=== PATIENT | female | born 1955 | race Caucasian/White ===

== ENCOUNTER 2017-01-13 11:41 | Day surgery (SDC) | payer MEDICAID ==
[2017-01-13] MEDS ORDERED: NATE60TA PO (12:15)
[2017-01-13] MEDS ORDERED: AMLO10TA2 PO (12:15)
[2017-01-13] MEDS ORDERED: LOSA50TA PO (12:15)
[2017-01-13] MEDS ORDERED: CYCL1TAB29 PO (12:15)
[2017-01-13] MEDS ORDERED: POLYDRO EACH EYE (12:15)
[2017-01-13] MEDS ORDERED: CHOL4POW3 PO (12:15)
[2017-01-13] MEDS ORDERED: ATOR40TA16 PO (12:15)
[2017-01-13] MEDS ORDERED: LORA10TA PO (12:15)
[2017-01-13] MEDS ORDERED: SPIR50TA PO (12:15)
[2017-01-13] MEDS ORDERED: FAMO20TA2 PO (12:15)
[2017-01-13] MEDS ORDERED: EPIN1INJ17 IM (12:15)
[2017-01-13] MEDS ORDERED: ADVA250A INH (12:15)
[2017-01-13] MEDS ORDERED: VENTAER INH (12:15)
[2017-01-13] MEDS ORDERED: FOLI5CAP PO (12:15)
[2017-01-13] MEDS ORDERED: CYAN1000P IM (12:15)
[2017-01-13] MEDS ORDERED: CLON0.1T PO (12:15)
[2017-01-13] MEDS ORDERED: NITR1SUB3 SL (12:15)
[2017-01-13] MEDS ORDERED: ceFAZolin 2 GM PREMIX 50 ML IV SCH (13:15)
[2017-01-13] MEDS ORDERED: CHLORHEXIDINE GLUCONATE 2 % 1 PACK (2 CLOTHS) TOPICAL SCH (13:15)
[2017-01-13] MEDS ORDERED: VANCOMYCIN 1000 MG/NS 250 ML IV SCH ×2 (13:15)
[2017-01-13] MEDS ORDERED: MIDAZOLAM HCL 2 MG/2 ML VIAL ONE (13:16)
[2017-01-13] MEDS ORDERED: MUPIROCIN 2% OINT 1 APPLIC/GM SYR NASAL SCH (14:00)
--- NOTE | 2017-01-13 14:21 | MR ---
cc: YING HAWKINS DATE: 01/13/2017 INDICATIONS FOR PROCEDURE: Cardiac arrhythmia, dizziness, palpitations. PROCEDURE PREFORMED: 1. Placement of Medtronic reveal Linq MRI compatible loop monitor. 2. Moderate sedation. EXIT SITE: Left subclavicular area. EQUIPMENT USED: Medtronic reveal Linq model LNQ11 MRI compatible loop monitor, serial number [id number]. MEDICATIONS: IV fentanyl PROCEDURE: After the patient was prepped and draped in the usual sterile manner, local anesthesia was administered. Medtronic Reveal Linq was placed in the left anterior chest without difficulty. R-wave is 0.23 millivolts. DIAGNOSIS: Successful placement of Medtronic Reveal LINQ MRI compatible loop monitor. DISPOSITION: Ms. Charlton will continue her current medical problem. She will be discharged home today. I will see her back for followup in our office after discharge. We will initiate lobsterman monitoring of her device. MD OSEI Greer/patel /1:43 PM /2:16 PM JAMAAL
== END 2017-01-13 14:25 | disposition home or self-care (01) ==
LOC: HDOC 11:41 → HDIC 11:42 → HDOC 14:25
PROVIDERS: ATTEND Internal Medicine Interventional Cardiology
DX: I49.9 Cardiac arrhythmia, unspecified (principal); R42 Dizziness and giddiness; R00.2 Palpitations
CPT/HCPCS: 33282; C1764; J0690; J2250; J3010

== ENCOUNTER 2018-05-28 13:11 | Observation (INO) ==
[2018-05-28 13:21] VITALS: TEMP 98.1
--- NOTE | 2018-05-28 13:37 | ED ---
HPI General Chief complaint: Headache Stated complaint: Headache Time Seen by Provider: 05/28/18 13:30 History of Present Illness HPI narrative: This is a 63-year-old female with history of chronic kidney disease, diabetes, COPD, hypertension, presents via EMS for evaluation of headache and facial droop. She reports that one week ago she developed right- sided facial droop primarily noticeable at the lips. She does not recall any forehead or eyelid droop. She reports that there were paresthesias in her right leg and right arm as well. Symptoms lasted for approximately 3-4 days and then resolved. She reports that one week ago she also developed left-sided occipital headaches which are sharp and intermittent, typically lasting for 4-5 minutes at a time. Those have persisted. She went to see her primary care physician today and was sent here via EMS. Currently her only complaint is the intermittent occipital headaches as well as high blood pressure. She reports that today her blood pressure was noted to be 212 systolic. She reports that she has been compliant with her medications. Denies dizziness, lightheadedness , chest pain, shortness of breath, weakness in the extremities, nausea or vomiting. No other complaints. Related Data Home Medications Medication Instructions Recorded Confirmed albuterol sulfate [Ventolin HFA] 2 puff INHALATION Q6H PRN 04/09/18 05/28/18 atorvastatin 40 mg PO DAILY 04/09/18 05/28/18 chlorthalidone 100 mg PO DAILY 04/09/18 05/28/18 cholestyramine (with sugar) 4 g PO BID 04/09/18 05/28/18 clonidine HCl 0.1 tab PO DAILY 04/09/18 05/28/18 cyanocobalamin (vitamin B-12) 1,000 mcg IM QMONTH 04/09/18 05/28/18 cyclobenzaprine [Amrix] 10 mg PO BID 04/09/18 05/28/18 diltiazem HCl 120 mg PO BID 04/09/18 05/28/18 epinephrine 0.3 mg IM Q15M PRN 04/09/18 05/28/18 famotidine 20 mg PO DAILY 04/09/18 05/28/18 fluticasone-salmeterol [Advair 1 inh INHALATION Q12H 04/09/18 05/28/18 Diskus] folic acid 1 mg PO DAILY 04/09/18 05/28/18 glipizide 2.5 mg PO DAILY 04/09/18 05/28/18 loratadine 10 mg PO DAILY 04/09/18 05/28/18 losartan 50 mg PO DAILY 04/09/18 05/28/18 metoprolol tartrate 100 mg PO BID 04/09/18 05/28/18 nateglinide 60 mg PO TID 04/09/18 05/28/18 nitroglycerin [Nitrostat] 0.4 mg SUBLINGUAL Q5-15M PRN 04/09/18 05/28/18 peg 400-propylene glycol 1 drp OPHTHALMIC (EYE) DAILY 04/09/18 05/28/18 [Lubricant Eye (PG-PEG 400)] promethazine 12.5 mg PO Q6H PRN 04/09/18 05/28/18 torsemide 10 mg PO DAILY 04/09/18 05/28/18 Allergies Allergy/AdvReac Type Severity Reaction Status Date / Time acetaminophen Allergy Severe Unverified 04/07/17 13:21 adhesive Allergy Severe Unverified 04/07/17 13:21 aspirin Allergy Severe Unverified 04/07/17 13:21 banana Allergy Severe Unverified 04/07/17 13:21 bumetanide Allergy Severe Unverified 04/07/17 13:21 codeine Allergy Severe Unverified 04/07/17 13:21 doxycycline Allergy Severe Unverified 04/07/17 13:21 furosemide Allergy Severe Unverified 04/07/17 13:21 hydrochlorothiazide Allergy Severe Unverified 04/07/17 13:21 iodine Allergy Severe Unverified 04/07/17 13:21 meperidine Allergy Severe Unverified 04/07/17 13:21 octreotide Allergy Severe Unverified 04/07/17 13:21 potassium iodide Allergy Severe Unverified 04/07/17 13:21 povidone-iodine Allergy Severe Unverified 04/07/17 13:21 propoxyphene Allergy Severe Unverified 04/07/17 13:21 sodium iodide Allergy Severe Unverified 04/07/17 13:21 sodium iodide Allergy Severe Unverified 04/07/17 13:21 triamterene Allergy Severe Unverified 04/07/17 13:21 ALL NON-CITRUS FRUITS Allergy Severe Uncoded 01/13/17 12:05 Review of Systems ROS: all other systems reviewed are negative [facility] Medical History Medical History CAD (coronary artery disease) (Acute) Diabetes (Acute) Hepatitis (Acute) Hypertension (Acute) Hypothyroid (Acute) IBS (irritable bowel syndrome) (Acute) Lymph node disorder (Acute) Social History Social History Substance History: No History of Abuse Second Hand Smoke Exposure: No Smoking Status: Former smoker Tobacco Type: Cigarettes How Often Do You Have a Drink Containing Alcohol: Never Recent Travel in [facility] within the Last 8 Weeks: No Recent Out of Country Travel within the Last 8 Weeks: No Immunization History Tetanus Immunization: Unsure Exam Narrative Exam Narrative: GENERAL: Well-developed well-nourished female no acute distress SKIN: Warm and dry. HEAD: Atraumatic. Normocephalic. EYES: Pupils equal and round. No scleral icterus. No injection or drainage. ENT: No nasal bleeding or discharge. Mucous membranes pink and moist. NECK: Trachea midline. No JVD. CARDIOVASCULAR: Regular rate and rhythm. No murmur appreciated. RESPIRATORY: No accessory muscle use. Clear to auscultation. Breath sounds equal bilaterally. GASTROINTESTINAL: Abdomen soft, non-tender, nondistended. Hepatic and splenic margins not palpable. MUSCULOSKELETAL: No obvious deformities. No clubbing. No cyanosis. No edema. NEUROLOGICAL: Awake and alert. No obvious cranial nerve deficits. Motor grossly within normal limits. Normal speech. Normal occupational therapy department chair strength bilaterally. No upper extremity drift. No lower extremity drift. Normal finger to nose. Normal sensation to light touch in the face, upper and lower extremities. Course Initial Documented Vital Signs Temperature 98.1 F 05/28/18 13:16 Pulse Rate 106 H 05/28/18 13:16 Respiratory Rate 17 05/28/18 13:16 Blood Pressure 176/86 H 05/28/18 13:16 Pulse Oximetry 96 05/28/18 13:16 Last Documented Vital Signs Temperature 98.1 F 05/28/18 13:16 Pulse Rate 92 H 05/28/18 14:46 Respiratory Rate 17 05/28/18 14:46 Blood Pressure 186/79 H 05/28/18 14:46 Pulse Oximetry 99 05/28/18 14:46 Medical Decision Making ADAM Attestation ADAM supervised visit: Yes Attestation: I, Dr. Euceda, have reviewed the advance practice practitioner's documentation and am in agreement, met with the patient face to face, made the diagnosis, and the medical decision making was done by me. *My assessment and Findings: Patient is a 63-year-old female who comes in complaining of a stabbing pain to the left side of her head. She does report neuro symptoms earlier in the week, but these have resolved. Exam shows no neurologic abnormalities. MDM Narrative Medical decision making narrative: The patient was placed on ECG monitoring pulse oximetry. Lab work, CT brain ordered. Lab work and imaging studies reviewed. At this point in time the plan will be to admit her for TIA. Discussed with Dr. Jerez who is agreeable, would like a neurology consult to be placed. Aspirin is not being administered as she reports that she is allergic to aspirin. Medical Screen Exam Complete: Yes Emergency Medical Condition: Yes Differential Diagnosis Differential Diagnosis: TIA, CVA, hypertensive emergency, hypertensive urgency, subarachnoid hemorrhage, mass, Manning's palsy Lab Data Result diagrams: 05/28/18 13:35 05/28/18 13:35 Lab Results 05/28/18 05/28/18 05/28/18 Range/Units 13:35 13:35 13:35 WBC 10.4 (4.0-11.0) th/mm3 RBC 5.00 (4.00-5.30) mil/mm3 Hgb 14.3 (11.6-15.3) gm/dL Hct 43.8 (35.0-46.0) % MCV 87.6 (80.0-100.0) fL MCH 28.5 (27.0-34.0) pg MCHC 32.6 (32.0-36.0) % RDW 16.6 (11.6-17.2) % Plt Count 278 (150-450) th/mm3 MPV 8.5 (7.0-11.0) fL Neut % (Auto) 57.7 (16.0-70.0) % Lymph % (Auto) 29.0 (9.0-44.0) % Iroquois % (Auto) 10.0 H (0.0-8.0) % Eos % (Auto) 2.3 (0.0-4.0) % Baso % (Auto) 1.0 (0.0-2.0) % Neut # (Auto) 6.0 (1.8-7.7) th/mm3 Lymph # (Auto) 3.0 (1.0-4.8) th/mm3 [place]ois # (Auto) 1.0 H (0.0-0.9) th/mm3 Eos # (Auto) 0.2 (0.0-0.4) th/mm3 Baso # (Auto) 0.1 (0.0-0.2) th/mm3 WBC Differential . Differential Comment Auto diff final PT 10.3 (9.8-11.6) sec INR 1.0 Ratio APTT 23.0 L (24.3-30.1) sec Sodium 142 (136-145) meq/L Potassium 3.5 (3.5-5.1) meq/L Chloride 103 (98-107) meq/L Carbon Dioxide 27.9 (21.0-32.0) meq/L Anion Gap 11 (5-15) meq/L BUN 10 (7-18) mg/dL Creatinine 1.05 H (0.50-1.00) mg/dL Estimated GFR 53 L (>89) mL/min Random Glucose 92 (74-106) mg/dL Calcium 8.7 (8.5-10.1) mg/dL Total Creatine Kinase 73 (26-192) U/L Troponin I Less than 0.02 L (0.02-0.05) ng/mL Imaging Data Radiologist's impression: Chest X-Ray 05/28/18 13:30 CONCLUSION: Mild prominence cardiac silhouette without infiltrate or failure. Head CT 05/28/18 13:30 CONCLUSION: 1. Negative for acute process. MRI, if the patient can have such, may be of benefit given the symptomatology. . Discharge Plan Discharge Disposition Patient Disposition: 30 Still Patient Discharge Condition Condition: Stable Discharge Details Diagnosis: Transient ischemic attack (TIA) Physicians Team ED Provider: Taylor Euceda ED Midlevel Provider: Randy Carvalho Rxs /Orders / Referrals /Forms Prescriptions: No Action losartan 50 mg Tablet 50 mg PO DAILY RF: 0 atorvastatin 40 mg Tablet 40 mg PO DAILY RF: 0 fluticasone-salmeterol [Advair Diskus] 250-50 mcg/dose Blister With Device 1 inh INHALATION Q12H RF: 0 metoprolol tartrate 100 mg Tablet 100 mg PO BID RF: 0 promethazine 12.5 mg Tablet 12.5 mg PO Q6H PRN (Reason: Nausea) RF: 0 torsemide 10 mg Tablet 10 mg PO DAILY RF: 0 chlorthalidone 25 mg Tablet 100 mg PO DAILY RF: 0 nateglinide 60 mg Tablet 60 mg PO TID RF: 0 diltiazem HCl 120 mg Capsule,Extended Release 12 Hr 120 mg PO BID RF: 0 famotidine 20 mg Tablet 20 mg PO DAILY RF: 0 cyanocobalamin (vitamin B-12) 1,000 mcg/mL Solution 1,000 mcg IM QMONTH RF: 0 nitroglycerin [Nitrostat] 0.4 mg Tablet, Sublingual 0.4 mg SUBLINGUAL Q5-15M PRN (Reason: Chest Pain) RF: 0 folic acid 1 mg Tablet 1 mg PO DAILY RF: 0 epinephrine 0.3 mg/0.3 mL Auto-Injector 0.3 mg IM Q15M PRN (Reason: Allergic Reaction) RF: 0 albuterol sulfate [Ventolin HFA] 90 mcg/actuation Hfa Aerosol Inhaler 2 puff INHALATION Q6H PRN (Reason: Adequate Ventilation) RF: 0 loratadine 10 mg Tablet 10 mg PO DAILY RF: 0 peg 400-propylene glycol [Lubricant Eye (PG-PEG 400)] 0.4-0.3 % Drops 1 drp OPHTHALMIC (EYE) DAILY RF: 0 cholestyramine (with sugar) 4 gram Powder 4 g PO BID RF: 0 cyclobenzaprine [Amrix] 15 mg Capsule,Extended Release 24hr 10 mg PO BID RF: 0 clonidine HCl 0.1 mg Tablet Extended Release 12 Hr 0.1 tab PO DAILY RF: 0 glipizide 2.5 mg Tablet Extended Release 24hr 2.5 mg PO DAILY RF: 0 Discharge Interventions Interventions: Vital Signs Last Done: 05/28/18 14:46 Status ED Status: With Doctor
[2018-05-28 14:01] LABS: Baso # (Auto) 0.1 th/mm3 (0.0-0.2); Eos # (Auto) 0.2 th/mm3 (0.0-0.4); Eos % (Auto) 2.3 % (0.0-4.0); Hematocrit 43.8 % (35.0-46.0); Hemoglobin 14.3 gm/dL (11.6-15.3); Mean Corpuscular HGB Conc 32.6 % (32.0-36.0); Mean Corpuscular Hemoglobin 28.5 pg (27.0-34.0); Mean Corpuscular Volume 87.6 fL (80.0-100.0); Mean Platelet Volume 8.5 fL (7.0-11.0); Neut % (Auto) 57.7 % (16.0-70.0); Platelet Count 278 th/mm3 (150-450); Red Cell Distribution Width 16.6 % (11.6-17.2); White Blood Count 10.4 th/mm3 (4.0-11.0)
[2018-05-28 14:11] LABS: Prothrombin Time 10.3 sec (9.8-11.6)
[2018-05-28 14:26] LABS: Anion Gap 11 meq/L (5-15); Blood Urea Nitrogen 10 mg/dL (7-18); Calcium 8.7 mg/dL (8.5-10.1); Carbon Dioxide 27.9 meq/L (21.0-32.0); Chloride 103 meq/L (98-107); Glomerular Filtration Rate 53 mL/min (>89); Glucose,Random 92 mg/dL (74-106); Sodium 142 meq/L (136-145)
[2018-05-28 14:27] LABS: Potassium 3.5 meq/L (3.5-5.1)
[2018-05-28 14:29] LABS: Creatine Kinase 73 U/L (26-192)
--- NOTE | 2018-05-28 14:29 | XR ---
EXAM DATE: 05/28/2018 1:30 PM EDT AGE/SEX: 63 years / Female INDICATIONS: Hypertension. CLINICAL DATA: This is the patient's initial encounter. Patient reports that signs and symptoms have been present for 1 day and indicates a pain score of 0/10. MEDICAL/SURGICAL HISTORY: None. None. COMPARISON: No prior exams available for comparison. FINDINGS: A single AP view of the chest demonstrates the lungs to be symmetrically aerated without evidence of mass, infiltrate or effusion. Mild prominence the cardiac silhouette. Osseous structures are intact. CONCLUSION: Mild prominence cardiac silhouette without infiltrate or failure. Electronically signed by: Tung Valentine MD 05/28/2018 2:27 PM EDT
--- NOTE | 2018-05-28 14:35 | CT ---
EXAM DATE: 05/28/2018 1:41 PM EDT AGE/SEX: 63 years / Female INDICATIONS: Cephalgia. Right sided facial droop. Bilateral hand and arm numbness. CLINICAL DATA: This is the patient's initial encounter. Patient reports that signs and symptoms have been present for 1 week and indicates a pain score of 3/10. MEDICAL/SURGICAL HISTORY: Diabetes. Hepatitis B. Irritable bowel syndrome. Lymph node disorder. None. RADIATION DOSE: 37.16 CTDI (mGy) COMPARISON: No prior exams available for comparison. TECHNIQUE: CT of the head without contrast. Using automated exposure control and adjustment of the mA and/or kV according to patient size, radiation dose was kept as low as reasonably achievable to ob tain optimal diagnostic quality images. DICOM format image data is available electronically for revi ew and comparison. FINDINGS: Cerebrum: The ventricles are normal for age. No evidence of midline shift, mass lesion, hemorrhage or acute infarction. No extraaxial fluid collections are seen. Posterior Fossa: The cerebellum and brainstem are intact. The 4th ventricle is midline. The cerebe llopontine angle is unremarkable. Extracranial: The visualized portion of the orbits is intact. Skull: The calvaria is intact. No evidence of skull fracture. CONCLUSION: 1. Negative for acute process. MRI, if the patient can have such, may be of benefit given the sympto matology. . Electronically signed by: Tung Valentine MD 05/28/2018 2:34 PM EDT
[2018-05-28 15:54] VITALS: BP 182/77; PULSE 83; RESP 18; O2SAT 98
--- NOTE | 2018-05-28 16:26 | US ---
EXAM DATE: 05/28/2018 12:00 AM EDT AGE/SEX: 63 years / Female INDICATIONS: TIA. Headaches. CLINICAL DATA: This is the patient's initial encounter. Patient reports that signs and symptoms have been present for 1 day and indicates a pain score of 0/10. MEDICAL/SURGICAL HISTORY: Diabetes. Hypertension. Hypothyroidism. Hepatitis. CAD. IBS. Hys terectomy. Neck surgery. Lung biopsy. COMPARISON: No prior exams available for comparison. VELOCITY PARAMETERS: ICA/CCA Ratio: Right 1.0 , Left 0.8 ICA: Right 77 cm/sec, Left 83 cm/sec CCA: Right 77 cm/sec, Left 102 cm/sec ECA: Right 81 cm/sec, Left 57 cm/sec Vertebral: Right 44 cm/sec antegrade, Left 57 cm/sec antegrade FINDINGS: Right Carotid: No significant plaque is visualized.The waveforms are within normal limits. Left Carotid: No significant plaque is visualized. The waveforms are within normal limits. Other: None. CONCLUSION: No evidence for hemodynamically significant stenosis. Electronically signed by: Ashlee North MD 05/28/2018 4:25 PM EDT
--- NOTE | 2018-05-28 17:36 | ECHRPT ---
Indication: CVA/TIA CONCLUSIONS Normal left ventricular size and wall thickness. The left ventricular systolic function is normal wi th an estimated ejection fraction in the range of 60-65%. No definite regional wall motion abnormalities are present. The aortic valve is not well visualized. There is trace tricuspid valve regurgitation. BP: / HR: Rhythm: Atrial fibrillation MEASUREMENTS (Male / Female) Normal Values Technical Quality:Fair 2D ECHO LVOT Diameter 2.0 cm Aortic Root Diameter 3.0 cm DOPPLER AV Peak Velocity 110.0 cm/s AV Peak Gradient 4.8 mmHg AV Mean Gradient 3.0 mmHg AV Velocity Time Integral 22.8 cm LVOT Peak Velocity 75.2 cm/s LVOT Peak Gradient 2.3 mmHg LVOT Velocity Time Integral 13.3 cm AV Area Cont Eq vti 1.8 cm AV Area Cont Eq pk 2.1 cm Mitral E Point Velocity 74.5 cm/s Mitral A Point Velocity 84.9 cm/s Mitral E to A Ratio 0.9 LV E' Lateral Velocity 8.0 cm/s Mitral E to LV E' Lateral Ratio 9.3 LV E' Septal Velocity 7.5 cm/s Mitral E to LV E' Septal Ratio 9.9 PV Peak Velocity 83.5 cm/s PV Peak Gradient 2.8 mmHg FINDINGS LEFT VENTRICLE Normal left ventricular size and wall thickness. The left ventricular systolic function is normal wi th an estimated ejection fraction in the range of 60-65%. No definite regional wall motion abnormalities are present. RIGHT VENTRICLE Normal right ventricular size and systolic function. LEFT ATRIUM The left atrial size is normal. RIGHT ATRIUM The right atrial size is normal. ATRIAL SEPTUM The interatrial septum not well visualized. AORTA The aortic root and proximal ascending aorta are not well visualized. MITRAL VALVE Structurally normal mitral valve. Trace mitral valve regurgitation. AORTIC VALVE The aortic valve is not well visualized. TRICUSPID VALVE There is trace tricuspid valve regurgitation. PULMONARY VALVE The pulmonary valve is not well visualized. VESSELS The inferior vena cava was not well visualized. PERICARDIUM No pericardial effusion. Guero Avina MD (Electronically Signed) Final Date:28 May 2018 17:35
--- NOTE | 2018-05-28 17:40 | MR ---
EXAM DATE: 05/28/2018 12:00 AM EDT AGE/SEX: 63 years / Female INDICATIONS: TIA. Right sided facial droop five days ago. CLINICAL DATA: This is the patient's initial encounter. Patient reports that signs and symptoms have been present for 4 - 6 days and indicates a pain score of 2/10. MEDICAL/SURGICAL HISTORY: Diabetes mellitus type I. Hypertension. Renal insufficiency. Hyster ectomy. Bilateral knee sx, Loop recorder implanted and removed, Neck sx. COMPARISON: [facility] [place], CT HEAD W/O CONTRAST, 05/28/2018. . TECHNIQUE: Multiplanar, multisequence examination of the brain was performed without contrast. FINDINGS: There is no evidence for intracranial hemorrhage, mass effect, mass lesions, edema, or extra-axial fl uid collections. There are no signs of acute infarction for technique. The diffusion portion is unr emarkable. Slight degree of brain atrophy is seen. Slight to moderate periventricular white matter ch anges are seen nonspecific mostly consistent with chronic small vessel ischemic changes. CONCLUSION: Chronic small vessel ischemic and atrophic changes. Electronically signed by: Ashlee North MD 05/28/2018 5:38 PM EDT
[2018-05-28] MEDS ORDERED: Non-Formulary Drug (Albuterol Sulfate 2 PUFF) INHALATION PRN (18:16)
[2018-05-28] MEDS ORDERED: Non-Formulary Drug (Promethazine [Promethazine] 12.5 MG) PO PRN (18:16)
[2018-05-28] MEDS ORDERED: Non-Formulary Drug (Fluticasone-Salmeterol [Advair Diskus] 1 INH) INHALATION SCH (18:30)
--- NOTE | 2018-05-28 18:36 | P.HP ---
[facility]ician: Manolo Flanagan Chief Complaint: Right facial droop weakness 3 days prior to admission History of Present Illness: Patient is a 63-year-old female with history of hypertension, diabetes type 2 on oral hypoglycemic History of tachybradycardia syndrome on beta-raegan this was confirmed by an loop recorder recording, denies any history of CVA or acute coronary syndrome, history of COPD who was sent here by primary care physician for evaluation. Patient states that about a week ago patient felt weak and tired and felt that the right side of the face was drooping that lasted for about 2-3 days now resolved. Noted no slurring or dysarthria. There was no fever, no chest pains or shortness of breath. Checks her blood pressure periodically on home her blood pressure was 190/107. Patient states compliance with medications. Patient went to her primary care physician where she related the right facial droop that happened a week ago and patient was sent in here for further evaluation. Patient baseline is still independent with ADLs On ROS - frequent diarrhea- and followed by a GI specialist as an outpatient Dr. Dueñas. Denies any urinary symptoms. history of esophageal dilatation done periodically x3 already in the past last time was 6 months ago. PCP is Dr. Arellano from [facility]. Also states history of hepatitis C. Review of Systems Patient still very independent with ADLs. Denies any fever chills She has history of periodic difficulty swallowing her food being stuck, history of esophageal dilatation done x3 in the past last time was 6 months ago by GI specialist Denies any incontinence. States good hypoglycemic awareness [facility] - History History Provided By: Patient, [employer] / EMT - Medical History Medical History: Medical History (Last Updated 05/28/18 @ 13:27 by Leandro Tellez) CAD (coronary artery disease) Diabetes Hepatitis Hypertension Hypothyroid IBS (irritable bowel syndrome) Lymph node disorder - Tobacco History Second Hand Smoke Exposure: No Tobacco Use In Past 30 Days: No Smoking Status: Former smoker Tobacco Type: Cigarettes - Alcohol History How Often Do You Have a Drink Containing Alcohol: Never - Substance Use History Substance History: No History of Abuse - Travel History Recent Travel in the [place] Within the Last 8 Weeks: No Recent Travel Out of the Country Within the Last 8 Weeks: No - Immunization History Tetanus Immunization: Unsure Medications and Allergies Active Medications: Active Medications Albuterol (Ventolin Hfa Inh) 2 puff INH Q6HR [facility] Amlodipine Besylate (Norvasc) 10 mg PO DAILY [facility] Atorvastatin Calcium (Lipitor) 40 mg PO HS [facility] Clonidine HCl (Catapres) 0.1 mg PO Q6H PRN PRN Reason: SBP>160, DBP>90 Clopidogrel Bisulfate (Plavix) 75 mg PO DAILY [facility] Famotidine (Pepcid) 20 mg PO DAILY [facility] Folic Acid (Folic Acid) 1 mg PO DAILY [facility] Loratadine (Claritin) 10 mg PO DAILY [facility] Losartan Potassium (Cozaar) 50 mg PO DAILY [facility] Non-Formulary Medication (Albuterol Sulfate) 2 puff INHALATION Q6H PRN PRN Reason: Adequate Ventilation Non-Formulary Medication (Chlorthalidone [Chlorthalidone]) 100 mg PO DAILY [facility] Non-Formulary Medication (Cholestyramine (With Sugar) [Cholestyramine (With Sugar)]) 4 g PO BID [facility] Non-Formulary Medication (Clonidine Hcl [Clonidine Hcl]) 0.1 tab PO DAILY [facility] Non-Formulary Medication (Cyclobenzaprine [Amrix]) 10 mg PO BID [facility] Non-Formulary Medication (Diltiazem Hcl [Diltiazem Hcl]) 120 mg PO BID [facility] Non-Formulary Medication (Fluticasone-Salmeterol [Advair Diskus]) 1 inh INHALATION Q12H [facility] Non-Formulary Medication (Peg 400-Propylene Glycol [Lubricant Eye (Pg-Peg 400)] ) 1 drp EACH EYE DAILY [facility] Non-Formulary Medication (Promethazine [Promethazine]) 12.5 mg PO Q6H PRN PRN Reason: Nausea Non-Formulary Medication (Torsemide [Torsemide]) 10 mg PO DAILY [facility] Torsemide (Demadex) 10 mg PO DAILY [facility] Trazodone HCl (Desyrel) 150 mg PO HS [facility] Allergies Allergy/AdvReac Type Severity Reaction Status Date / Time acetaminophen Allergy Severe Unverified 04/07/17 13:21 adhesive Allergy Severe Unverified 04/07/17 13:21 aspirin Allergy Severe Unverified 04/07/17 13:21 banana Allergy Severe Unverified 04/07/17 13:21 bumetanide Allergy Severe Unverified 04/07/17 13:21 codeine Allergy Severe Unverified 04/07/17 13:21 doxycycline Allergy Severe Unverified 04/07/17 13:21 furosemide Allergy Severe Unverified 04/07/17 13:21 hydrochlorothiazide Allergy Severe Unverified 04/07/17 13:21 iodine Allergy Severe Unverified 04/07/17 13:21 meperidine Allergy Severe Unverified 04/07/17 13:21 octreotide Allergy Severe Unverified 04/07/17 13:21 potassium iodide Allergy Severe Unverified 04/07/17 13:21 povidone-iodine Allergy Severe Unverified 04/07/17 13:21 propoxyphene Allergy Severe Unverified 04/07/17 13:21 sodium iodide Allergy Severe Unverified 04/07/17 13:21 sodium iodide Allergy Severe Unverified 04/07/17 13:21 triamterene Allergy Severe Unverified 04/07/17 13:21 ALL NON-CITRUS FRUITS Allergy Severe Uncoded 01/13/17 12:05 Home Medications Medication Instructions Recorded Confirmed Type albuterol sulfate [Ventolin HFA] 2 puff INHALATION Q6H PRN 04/09/18 05/28/18 History atorvastatin 40 mg PO DAILY 04/09/18 05/28/18 History chlorthalidone 100 mg PO DAILY 04/09/18 05/28/18 History cholestyramine (with sugar) 4 g PO BID 04/09/18 05/28/18 History clonidine HCl 0.1 tab PO DAILY 04/09/18 05/28/18 History cyanocobalamin (vitamin B-12) 1,000 mcg IM QMONTH 04/09/18 05/28/18 History cyclobenzaprine [Amrix] 10 mg PO BID 04/09/18 05/28/18 History diltiazem HCl 120 mg PO BID 04/09/18 05/28/18 History epinephrine 0.3 mg IM Q15M PRN 04/09/18 05/28/18 History famotidine 20 mg PO DAILY 04/09/18 05/28/18 History fluticasone-salmeterol [Advair 1 inh INHALATION Q12H 04/09/18 05/28/18 History Diskus] folic acid 1 mg PO DAILY 04/09/18 05/28/18 History glipizide 2.5 mg PO DAILY 04/09/18 05/28/18 History loratadine 10 mg PO DAILY 04/09/18 05/28/18 History losartan 50 mg PO DAILY 04/09/18 05/28/18 History metoprolol tartrate 100 mg PO BID 04/09/18 05/28/18 History nateglinide 60 mg PO TID 04/09/18 05/28/18 History nitroglycerin [Nitrostat] 0.4 mg SUBLINGUAL Q5-15M PRN 04/09/18 05/28/18 History peg 400-propylene glycol 1 drp OPHTHALMIC (EYE) DAILY 04/09/18 05/28/18 History [Lubricant Eye (PG-PEG 400)] promethazine 12.5 mg PO Q6H PRN 04/09/18 05/28/18 History torsemide 10 mg PO DAILY 04/09/18 05/28/18 History Exam Vital signs: Vital Signs 05/28/18 13:16 05/28/18 13:25 05/28/18 13:39 Temperature 98.1 F Pulse Rate 106 H 100 H Respiratory Rate 17 17 Blood Pressure 176/86 H Pulse Oximetry 96 95 96 05/28/18 14:46 05/28/18 15:53 Temperature Pulse Rate 92 H 83 Respiratory Rate 17 18 Blood Pressure 186/79 H 182/77 H Pulse Oximetry 99 98 Intake & Output 05/27/18 05/28/18 05/28/18 18:59 06:59 18:59 Weight 110.223 kg Narrative: Awake alert oriented x3 not in any form of distress Anicteric sclerae pink palpebral conjunctivae Neck supple no JVD no bruit Chest lungs bilateral breath sounds equal no rales no wheezes Regular rhythm Abdomen is soft nontender with good bowel sounds Extremities no edema no clubbing Neurologic exam ANO x3 clear speech Extraocular muscles full range of motion Pupils equally reactive light Very very mild left shallow nasolabial fold tongue midline good Gag reflex Motor 5/5 in all extremities grossly no sensory deficit Gait steady and slow but stable Results - Labs CBC & Chem 7: 05/28/18 13:35 05/28/18 13:35 Labs: Laboratory Results - last 24 hr 05/28/18 05/28/18 05/28/18 13:35 13:35 13:35 WBC 10.4 RBC 5.00 Hgb 14.3 Hct 43.8 MCV 87.6 MCH 28.5 MCHC 32.6 RDW 16.6 Plt Count 278 MPV 8.5 Neut % (Auto) 57.7 Lymph % (Auto) 29.0 [place] % (Auto) 10.0 H Eos % (Auto) 2.3 Baso % (Auto) 1.0 Neut # (Auto) 6.0 Lymph # (Auto) 3.0 [place] # (Auto) 1.0 H Eos # (Auto) 0.2 Baso # (Auto) 0.1 WBC Differential . Differential Comment Auto diff final PT 10.3 INR 1.0 APTT 23.0 L Sodium 142 Potassium 3.5 Chloride 103 Carbon Dioxide 27.9 Anion Gap 11 BUN 10 Creatinine 1.05 H Estimated GFR 53 L POC Glucose Random Glucose 92 Calcium 8.7 Total Creatine Kinase 73 Troponin I Less than 0.02 L 05/28/18 18:08 WBC RBC Hgb Hct MCV MCH MCHC RDW Plt Count MPV Neut % (Auto) Lymph % (Auto) [place] % (Auto) Eos % (Auto) Baso % (Auto) Neut # (Auto) Lymph # (Auto) [place] # (Auto) Eos # (Auto) Baso # (Auto) WBC Differential Differential Comment PT INR APTT Sodium Potassium Chloride Carbon Dioxide Anion Gap BUN Creatinine Estimated GFR POC Glucose 106 Random Glucose Calcium Total Creatine Kinase Troponin I - Imaging Impressions Carotid Doppler Study 05/28/18 00:00 CONCLUSION: No evidence for hemodynamically significant stenosis. Head MRI 05/28/18 00:00 CONCLUSION: Chronic small vessel ischemic and atrophic changes. Chest X-Ray 05/28/18 13:30 CONCLUSION: Mild prominence cardiac silhouette without infiltrate or failure. Head CT 05/28/18 13:30 CONCLUSION: 1. Negative for acute process. MRI, if the patient can have such, may be of benefit given the symptomatology. . Caprini VTE Risk Assessment Caprini VTE Risk Assessment: Moderate/High Risk (score >= 2) Caprini Risk Assessment Model: Point Value = 1 Point Value = 2 Point Value = 3 Point Value = 5 Age 41-60 Minor surgery BMI > 25 kg/m2 Swollen legs Varicose veins or History of unexplained or recurrent spontaneous Oral contraceptives or hormone replacement Sepsis (< 1 month) Serious lung disease, including pneumonia (< 1 month) Abnormal pulmonary function Acute myocardial infarction Congestive heart failure (< 1 month) History of inflammatory bowel disease Medical patient at bed rest Age 61-74 Arthroscopic surgery Major open surgery (> 45 min) Laparoscopic surgery (> 45 min) Malignancy Confined to bed (> 72 hours) Immobilizing plaster cast Central venous access Age >= 75 History of VTE Family history of VTE Factor V Leiden Prothrombin [id number] Lupus anticoagulant Anticardiolipin antibodies Elevated serum homocysteine Heparin-induced thrombocytopenia Other congenital or acquired thrombophilia Stroke (< 1 month) Elective arthroplasty Hip, pelvis, or leg fracture Acute spinal cord injury (< 1 month) Prophylaxis Regimen: Total Risk Factor Score Risk Level Prophylaxis Regimen 0-1 Low Early ambulation 2 Moderate Order ONE of the following: *Sequential Compression Device (SCD) *Heparin 5000 units SQ BID 3-4 Higher Order ONE of the following medications: *Heparin 5000 units SQ TID *Enoxaparin/Lovenox 40 mg SQ daily (WT < 150 kg, CrCl > 30 mL/min) *Enoxaparin/Lovenox 30 mg SQ daily (WT < 150 kg, CrCl > 10-29 mL/min) *Enoxaparin/Lovenox 30 mg SQ BID (WT < 150 kg, CrCl > 30 mL/min) AND/OR *Sequential Compression Device (SCD) 5 or more Highest Order ONE of the following medications: *Heparin 5000 units SQ TID (Preferred with Epidurals) *Enoxaparin/Lovenox 40 mg SQ daily (WT < 150 kg, CrCl > 30 mL/min) *Enoxaparin/Lovenox 30 mg SQ daily (WT < 150 kg, CrCl > 10-29 mL/min) *Enoxaparin/Lovenox 30 mg SQ BID (WT < 150 kg, CrCl > 30 mL/min) AND *Sequential Compression Device (SCD) Assessment and Plan - Plan 63-year-old female with known history of hypertension presenting with TIA - Acute neurologic symptoms of right facial droop 3 days ago which has now resolved No motor deficit Twelve-lead EKG shows normal sinus rhythm no acute ST-T wave changes Patient is allergic to aspirin. Will start patient on Plavix 75 mg p.o. daily Neurology was consulted Get carotid ultrasound 2D echo and an MRI PT eval in a.m. Uncontrolled hypertension History of tachybradycardia syndrome in the past. Currently in sinus rhythm Start patient on home regimen Torsemide 10 mg daily. Cardizem CD 120 mg twice daily Losartan 50 mg daily- increase this to 100 mg daily Give clonidine 0.1 mg p.o. every 6 as needed for systolic blood pressure- 160 /90 Monitor and adjust regimen Diabetes type 2 on oral hypoglycemic- hold for now We will check hemoglobin A1c in a.m. Follow blood sugars for now. History of GERD history of esophageal stricture status post dilatation in the past Histroy fo diarrhea Continue famotidine 20 mg daily continue Cholestyramine History of COPD. History of allergy continue on metered-dose inhaler pro-air. Advair 1 puff daily loratadine 10 mg daily History of hyperlipidemia. Continue on atorvastatin PT consult
[2018-05-28] MEDS ORDERED: [UNRECOGNIZED DRUG - OTHER] PO SCH (21:00)
[2018-05-28] MEDS ORDERED: CYCLOBENZAPRINE 10 MG PO SCH (21:00)
[2018-05-28] MEDS ORDERED: traZODone 100 MG Tablet PO SCH (21:00)
[2018-05-28] MEDS ORDERED: CHOLESTYRAMINE 4 GM PO SCH (21:00)
[2018-05-29] MEDS ORDERED: Folic Acid 1 MG Tablet PO SCH (09:00)
[2018-05-29] MEDS ORDERED: PROPYLENE GLYCOL EACH EYE SCH (09:00)
[2018-05-29] MEDS ORDERED: CHLORTHALIDONE 100 MG PO SCH (09:00)
[2018-05-29] MEDS ORDERED: CLONIDINE HCL PO SCH (09:00)
[2018-05-29] MEDS ORDERED: amLODIPine 10 MG Tablet PO SCH (09:00)
[2018-05-29] MEDS ORDERED: Famotidine 20 MG Tablet PO SCH (09:00)
[2018-05-29] MEDS ORDERED: Loratadine 10 MG Tablet PO SCH (09:00)
[2018-05-29] MEDS ORDERED: POLYETHYLENE GLYCOL 400 EACH EYE SCH (09:00)
--- NOTE | 2018-05-29 13:24 | ECG ---
Date Performed: 05/28/2018 Time Performed: 13:35:44 PTAGE: 63 years EKG: Sinus rhythm NORMAL ECG NO PREVIOUS TRACING DOCTOR: Myrna Walker Interpretating Date/Time 05/29/2018 13:15:28
== END 2018-05-28 19:10 | disposition left against medical advice (07) ==
LOC: NEDA 13:11 → NEPE 13:11 → NEPHCDU 17:22
PROVIDERS: ADMIT Internal Medicine; ATTEND Internal Medicine